=== PATIENT | female | born 1945 | race African-American/Black ===

== ENCOUNTER → 2017-04-19 | Outpatient (CLI) | payer MEDICARE, OTHER ==
[~2017-04-19] MED LIST: ALLO300T PO; AMIO200T42 PO; ASPI-496 PO; ASPI-621 PO; CARV-39 PO; CHOL200024 PO; COLC0.6T37 PO; CYAN25009 PO; DIGO125T PO; DIGO250T PO; FEBU40TA PO; FURO-92 PO; FURO40TA6 PO; GLIP10TA13 PO; HYDR-3237 PO; HYDR-3240 PO; HYDR-3341 PO; INSU100V13 SC; ISOS10TA2 PO; OXYC-302 PO; POTA10TA5 PO; POTA20TA14 PO; PRED10TA PO; RIVA20TA PO; ROSU10TA PO; SENN1TAB7 PO; SPIR25TA PO; SPIR25TA3 PO
== END | disposition home or self-care (01) ==
LOC: WOUND 12:31
PROVIDERS: ATTEND Nurse Practitioner Family
DX: E11.622 Type 2 diabetes mellitus with other skin ulcer (principal); L97.821 Non-pressure chronic ulcer of other part of left lower leg limited to breakdown of skin; E11.65 Type 2 diabetes mellitus with hyperglycemia; I48.0 Paroxysmal atrial fibrillation
CPT/HCPCS: 15271; G0463; Q4172; WOU0463

== ENCOUNTER → 2017-06-01 | Outpatient (CLI) | payer MEDICARE, OTHER | END | disposition home or self-care (01) | LOC: WOUND 11:00 | PROVIDERS: ATTEND Family Medicine | DX: E11.622 Type 2 diabetes mellitus with other skin ulcer (principal); L97.821 Non-pressure chronic ulcer of other part of left lower leg limited to breakdown of skin; E11.65 Type 2 diabetes mellitus with hyperglycemia; I42.9 Cardiomyopathy, unspecified; E78.5 Hyperlipidemia, unspecified; I11.0 Hypertensive heart disease with heart failure; I50.89 Other heart failure; I48.0 Paroxysmal atrial fibrillation; F17.210 Nicotine dependence, cigarettes, uncomplicated; Z86.73 Personal history of transient ischemic attack (TIA), and cerebral infarction without residual deficits; Z95.0 Presence of cardiac pacemaker | CPT/HCPCS: G0463; WOU0463 ==

== ENCOUNTER → 2017-06-22 | Outpatient (CLI) | payer MEDICARE, OTHER | END | disposition home or self-care (01) | LOC: WOUND 10:30 | PROVIDERS: ATTEND Internal Medicine | DX: S81.802D Unspecified open wound, left lower leg, subsequent encounter (principal); E11.65 Type 2 diabetes mellitus with hyperglycemia; E78.5 Hyperlipidemia, unspecified; I48.0 Paroxysmal atrial fibrillation; I11.0 Hypertensive heart disease with heart failure; I50.89 Other heart failure; I42.9 Cardiomyopathy, unspecified; Z86.73 Personal history of transient ischemic attack (TIA), and cerebral infarction without residual deficits; F17.210 Nicotine dependence, cigarettes, uncomplicated; Z95.0 Presence of cardiac pacemaker; X58.XXXD Exposure to other specified factors, subsequent encounter | CPT/HCPCS: G0463; WOU0463 ==